=== PATIENT | male | born 1980 | race Caucasian/White ===

== ENCOUNTER 2021-01-20 10:34 | Emergency (ER) | payer OTHER ==
[2021-01-20 10:42] VITALS: BP 156/98; PULSE 73; RESP 16; TEMP 97.6
--- NOTE | 2021-01-20 10:58 | ED ---
ENT HPI - General Chief complaint: ENT Stated complaint: ear plug stuck in rt eat Time Seen by Provider: 01/20/21 10:51 Source: patient, RN notes reviewed Mode of arrival: ambulatory Limitations: no limitations - History of Present Illness Initial comments: 40-year-old male comes the emergency department complaining of ear blood stuck in right ear. He notes that it caused him to miss shoulders ordered due to him being dizzy. She also reported some muffled hearing. He denied any pain or other complaints. He was in no apparent distress or pain while sitting up in bed during the exam interview. He denied any chest pain short of breath headache nausea vomiting diarrhea constipation fever fatigue chills tinnitus. - Related Data Allergies Allergy/AdvReac Type Severity Reaction Status Date / Time No Known Allergies Allergy Verified 01/20/21 10:39 Review of Systems ROS Statement: Those systems with pertinent positive or pertinent negative responses have been documented in the HPI. ROS Other: All systems not noted in ROS Statement are negative. Past Medical History Past Medical History: No Reported History History of Any Multi-Drug Resistant Organisms: None Reported Past Surgical History: Appendectomy Smoking Status: Never smoker Past Alcohol Use History: None Reported Past Drug Use History: None Reported General Exam Limitations: no limitations General appearance: alert, in no apparent distress Head exam: Present: atraumatic, normocephalic, normal inspection Eye exam: Present: normal appearance, PERRL, EOMI. Absent: scleral icterus, c onjunctival injection, periorbital swelling ENT exam: Present: normal exam, mucous membranes moist, normal external ear exam (Impacted cerumen bilaterally) Neck exam: Present: normal inspection. Absent: tenderness, meningismus, lymphadenopathy Respiratory exam: Present: normal lung sounds bilaterally. Absent: respiratory distress, wheezes, rales, rhonchi, stridor Cardiovascular Exam: Present: regular rate, normal rhythm, normal heart sounds. Absent: systolic murmur, diastolic murmur, rubs, gallop, clicks GI/Abdominal exam: Present: soft, normal bowel sounds. Absent: distended, tenderness, guarding, rebound, rigid Extremities exam: Present: normal inspection, full ROM, normal capillary refill. Absent: tenderness, pedal edema, joint swelling, calf tenderness Neurological exam: Present: alert, oriented X3, CN II-XII intact Psychiatric exam: Present: normal affect, normal mood Skin exam: Present: warm, dry, intact, normal color. Absent: rash Course Vital Signs 01/20/21 10:39 Temperature 97.6 F Pulse Rate 73 Respiratory 16 Rate Blood Pressure 156/98 O2 Sat by Pulse 98 Oximetry Procedures - Ear Wax Removal Both Ears Ear Canal Irrigated by: RN Ear Canal Irrigated With: warm saline using syringe/angiocath Results: Re-examined: cerumen removed completely TM Visible: TM(s) intact, normal appearance Ear Canal: atraumatic Patient Tolerated Procedure: well Complications: no problems Medical Decision Making - Medical Decision Making 40-year-old male with impacted cerumen in bilateral ears. No labs necessary. Will flush the ears Case discussed with Dr. Wilson, patient discharge home with follow-up to primary care as needed. Disposition Clinical Impression: Impacted cerumen of both ears Disposition: HOME SELF-CARE Condition: Stable Instructions (If sedation given, give patient instructions): Cerumen Impaction (ED) Additional Instructions: Please return to the Emergency Department if symptoms worsen or any other concerns. Can use [id number] ear cleaning kits such as Debrox help prevent buildup and impaction Follow-up with primary care as needed. avoid using Q-tips inside the ear. Is patient prescribed a controlled substance at d/c from ED?: No Referrals: None,Stated [Primary Care Provider] - 1-2 days Time of Disposition: 11:54
== END 2021-01-20 12:06 | disposition home or self-care (01) ==
LOC: EC 10:34
DX: H61.23 Impacted cerumen, bilateral (principal)
CPT/HCPCS: 69210; 99282

== ENCOUNTER 2021-02-14 03:24 | Emergency (ER) | payer OTHER ==
[2021-02-14 03:30] VITALS: RESP 18; TEMP 98.3
[2021-02-14] MEDS ORDERED: IBUPROFEN 400 MG TAB PO STA (03:59)
--- NOTE | 2021-02-14 04:03 | ED ---
Fall HPI - General Chief Complaint: Fall Stated Complaint: Fall - [facility] Time Seen by Provider: 02/14/21 03:50 Source: patient Mode of arrival: ambulatory - History of Present Illness Initial Comments: Patient is a 40-year-old man presenting to be evaluated after a slip and fall injury. He states that he was at work tonight and he attempted to walk around the work area to get some parts when he slipped on some oil and fell striking his buttocks and tailbone area. Complains of pain to the sacrum and coccyx area. Denies other injury. MD Complaint: fall -: hour(s) Fall From: standing When Fall Occurred: 1-3 [address] [address] Fall Occurred: work Loss of Consciousness: none Prolonged Down Time?: no Symptoms Prior to Fall: none Location: back, buttocks Severity: moderate Quality: aching Context: tripped/slipped Associated Symptoms: denies - Related Data Previous Rx's Medication Instructions Recorded Ibuprofen 800 mg PO TID #20 tablet 02/14/21 Allergies Allergy/AdvReac Type Severity Reaction Status Date / Time No Known Allergies Allergy Verified 02/14/21 03:29 Review of Systems ROS Statement: Those systems with pertinent positive or pertinent negative responses have been documented in the HPI. ROS Other: All systems not noted in ROS Statement are negative. Constitutional: Denies: fever Eyes: Denies: vision change Respiratory: Denies: cough, dyspnea Cardiovascular: Denies: chest pain, syncope Gastrointestinal: Denies: abdominal pain, nausea, vomiting Genitourinary: Denies: dysuria, testicular pain Musculoskeletal: Reports: as per HPI, back pain Skin: Denies: rash Neurological: Denies: headache, weakness, numbness, paresthesias Past Medical History Past Medical History: No Reported History History of Any Multi-Drug Resistant Organisms: None Reported Past Surgical History: Appendectomy Past Psychological History: No Psychological Hx Reported Smoking Status: Never smoker Past Alcohol Use History: None Reported Past Drug Use History: None Reported General Exam Limitations: no limitations General appearance: alert, in no apparent distress Head exam: Present: atraumatic, normocephalic Neck exam: Present: normal inspection, full ROM. Absent: tenderness Respiratory exam: Present: normal lung sounds bilaterally. Absent: respiratory distress, wheezes, rales, rhonchi, stridor GI/Abdominal exam: Present: soft. Absent: distended, tenderness, guarding, rebound, mass Extremities exam: Present: normal inspection, normal capillary refill. Absent: pedal edema, calf tenderness Back exam: Present: vertebral tenderness. Absent: CVA tenderness (R), CVA tenderness (L) Neurological exam: Present: alert Skin exam: Present: warm, dry, intact, normal color. Absent: rash Course Vital Signs 02/14/21 02/14/21 03:25 04:20 Temperature 98.3 F Pulse Rate 90 80 Respiratory 18 18 Rate Blood Pressure 127/88 118/65 O2 Sat by Pulse 97 98 Oximetry Disposition Clinical Impression: Fall, Contusion Disposition: HOME SELF-CARE Condition: Good Instructions (If sedation given, give patient instructions): Hematoma (ED) Prescriptions: Ibuprofen 800 mg PO TID #20 tablet Is patient prescribed a controlled substance at d/c from ED?: No Referrals: None,Stated [Primary Care Provider] - 1-2 days
[2021-02-14 04:21] VITALS: BP 118/65; PULSE 80
--- NOTE | 2021-02-14 05:03 | XR ---
EXAM: XR Sacrum and Coccyx, 2 or more Views CLINICAL HISTORY: ITS.REASON XR Reason: fall injury TECHNIQUE: Frontal and lateral views of the sacrum and coccyx. COMPARISON: No relevant prior studies available. FINDINGS: Sacrum/coccyx: Unremarkable as visualized. No acute fracture. Vertebrae: Visualized lumbar vertebrae are unremarkable. Soft tissues: Unremarkable. IMPRESSION: Normal sacrum and coccyx x-rays.
--- NOTE | 2021-02-14 05:05 | XR ---
EXAM: XR Lumbosacral Spine, 2 or 3 Views CLINICAL HISTORY: ITS.REASON XR Reason: fall injury TECHNIQUE: Frontal and lateral views of the lumbar spine and sacrum. COMPARISON: No relevant prior studies available. FINDINGS: Vertebrae: Unremarkable. No acute fracture. Normal alignment. Degenerative osteophytes throughout the lower thoracic and upper lumbar spine. Sacrum/coccyx: Unremarkable as visualized. No acute fracture. Disc spaces: No acute findings. Mild disc space narrowing of the upper lumbar spine. Soft tissues: Unremarkable. IMPRESSION: 1. No acute fractures or traumatic malalignment to the lumbar spine. 2. Degenerative osteophytes throughout the lower thoracic and upper lumbar spine. Mild disc space narrowing of the upper lumbar spine.
== END 2021-02-14 05:25 | disposition home or self-care (01) ==
LOC: EC 03:24
DX: S80.10XA Contusion of unspecified lower leg, initial encounter (principal); W01.0XXA Fall on same level from slipping, tripping and stumbling without subsequent striking against object, initial encounter; Y93.01 Activity, walking, marching and hiking; Y99.0 Civilian activity done for income or pay
CPT/HCPCS: 72100; 72220; 99284

== ENCOUNTER → 2021-02-22 | Outpatient (CLI) | payer OTHER ==
--- NOTE | 2021-02-22 15:14 | XR ---
EXAMINATION TYPE: XR knee complete LT DATE OF EXAM: 02/22/2021 COMPARISON: NONE HISTORY: Pain TECHNIQUE: Three views are submitted. FINDINGS: Joint spaces are preserved. Osseous structures are intact. No acute fracture seen. Mild hypertroph ic spurring along the medial compartment of the knee. Small amount of fluid in the suprapatellar burs a. IMPRESSION: 1. No acute fracture or dislocation. 2. Small amount of fluid in the suprapatellar bursa. Correlate with MRI as clinically warranted.
== END | disposition home or self-care (01) ==
LOC: RADXRMAIN 14:39
PROVIDERS: ATTEND Emergency Medicine
DX: M25.562 Pain in left knee (principal)

== ENCOUNTER 2021-02-26 10:40 | Emergency (ER) | payer OTHER ==
[2021-02-26 11:22] VITALS: BP 123/81; PULSE 70; RESP 18; TEMP 97.6
[2021-02-26] MEDS ORDERED: KETOROLAC 15 MG/ML 1 ML VIAL IM STA (11:47)
--- NOTE | 2021-02-26 12:39 | XR ---
EXAMINATION TYPE: XR knee complete LT DATE OF EXAM: 02/26/2021 CLINICAL HISTORY: Persistent Pain since recent injury. TECHNIQUE: Three views of the left knee are obtained. COMPARISON: Left knee x-rays 4 days ago. FINDINGS: There is no acute fracture/dislocation evident in left knee. Mild tricompartment narrowing redemonstrated. No significant spurring. Improved suprapatellar density consistent with resolving kathrin int effusion. IMPRESSION: As above.
--- NOTE | 2021-02-26 12:59 | ED ---
General Adult HPI - General Chief complaint: Extremity Injury, Lower Stated complaint: knee pain Time Seen by Provider: 02/26/21 11:25 Source: patient Mode of arrival: ambulatory Limitations: physical limitation - History of Present Illness Initial comments: 40-year-old male resents to the emergency department for chief complaint of left knee pain. Patient reports that about 2 weeks ago he slipped and fell at work and injured his left knee. States his leg "folded" under him when he fell. Patient states he was seen and had an x-ray performed. He then followed up with Dr. Levin at [facility]. Patient reports that his knee pain has continued and he has not sure what is going on with it. He denies any fevers or chills. States he can walk on the knee.Patient has no other complaints at this time including shortness of breath, chest pain, abdominal pain, nausea or vomiting, headache, or visual changes. - Related Data Home Medications Medication Instructions Recorded Confirmed Multivitamins, Thera [Multivitamin 1 tab PO Q48H 02/26/21 02/26/21 (formulary)] Previous Rx's Medication Instructions Recorded Ibuprofen 800 mg PO TID #20 tablet 02/14/21 Allergies Allergy/AdvReac Type Severity Reaction Status Date / Time No Known Allergies Allergy Verified 02/26/21 11:49 Review of Systems ROS Statement: Those systems with pertinent positive or pertinent negative responses have been documented in the HPI. ROS Other: All systems not noted in ROS Statement are negative. Past Medical History Past Medical History: No Reported History History of Any Multi-Drug Resistant Organisms: None Reported Past Surgical History: Appendectomy Past Psychological History: No Psychological Hx Reported Smoking Status: Never smoker Past Alcohol Use History: None Reported Past Drug Use History: None Reported General Exam Limitations: physical limitation General appearance: alert, in no apparent distress Head exam: Present: atraumatic, normocephalic, normal inspection Eye exam: Present: normal appearance, PERRL, EOMI. Absent: scleral icterus, conjunctival injection, periorbital swelling ENT exam: Present: normal exam, mucous membranes moist Neck exam: Present: normal inspection. Absent: tenderness, meningismus, lymphadenopathy Respiratory exam: Present: normal lung sounds bilaterally. Absent: respiratory distress, wheezes, rales, rhonchi, stridor Cardiovascular Exam: Present: regular rate, normal rhythm, normal heart sounds. Absent: systolic murmur, diastolic murmur, rubs, gallop, clicks Extremities exam: Present: full ROM (Full range of motion of the left knee. Patient does have pain with flexion of the left knee past 90), normal capillary refill (Capillary refill less than 2 seconds, DP pulse 2+ left lower extremity), other (Sensation intact left lower extremity). Absent: tenderness, joint swelling (No edema, erythema, ecchymosis of the left leg.) Course Vital Signs 02/26/21 11:19 Temperature 97.6 F Pulse Rate 70 Respiratory 18 Rate Blood Pressure 123/81 O2 Sat by Pulse 96 Oximetry Medical Decision Making - Medical Decision Making Vitals are stable. Patient has had knee pain for the fall 2 weeks ago. Patient is able to fully flex left knee however does have pain with flexion past 90. He is able to intubate on the knee. No edema erythema noted of the left knee. Patient did have a neck supple performed today in the ER. This showed no acute fracture or dislocation. There is improved suprapatellar density consistent with resolving joint effusion. At this point patient has not seen orthopedics. We will refer him for possible MRI. He will take Motrin without for pain. He will return for any worsening symptoms otherwise. Disposition Clinical Impression: Knee pain, left Disposition: HOME SELF-CARE Condition: Good Instructions (If sedation given, give patient instructions): Knee Pain (ED) Additional Instructions: Please take Motrin and Tylenol for pain. Rest ice and elevate the left knee. Follow-up with orthopedics. Return to the emergency room for any worsening symptoms. Is patient prescribed a controlled substance at d/c from ED?: No Referrals: Mejia Bridges MD [Primary Care Provider] - 1-2 days Damian Randle DO [Doctor of Osteopathic Medicine] - 1-2 days Time of Disposition: 12:58
== END 2021-02-26 13:00 | disposition home or self-care (01) ==
LOC: EC 10:40
DX: M25.562 Pain in left knee (principal); W01.0XXA Fall on same level from slipping, tripping and stumbling without subsequent striking against object, initial encounter; Y99.0 Civilian activity done for income or pay
CPT/HCPCS: 99283; 96372; 73562; J1885

== ENCOUNTER → 2021-02-28 | Outpatient (CLI) | payer OTHER ==
--- NOTE | 2021-02-28 12:59 | XR ---
EXAMINATION TYPE: XR ankle complete LT DATE OF EXAM: 02/28/2021 COMPARISON: NONE HISTORY: Pain FINDINGS: Three views of the ankle demonstrate the ankle mortise to be intact and symmetric. The joint spaces are preserved. The osseous structures are intact. IMPRESSION: 1. No definite acute fracture or dislocation, if symptoms persist follow-up study in 7 to 10 days wou ld be suggested.
== END | disposition home or self-care (01) ==
LOC: RADXRMAIN 12:38
PROVIDERS: ATTEND Emergency Medicine
DX: M25.572 Pain in left ankle and joints of left foot (principal)

== ENCOUNTER 2021-05-24 11:22 | Day surgery (SDC) | payer OTHER ==
[2021-05-18 13:18] VITALS: BMI 35.1
--- NOTE | 2021-05-23 22:09 | HP ---
HISTORY AND PHYSICAL DATE OF SURGERY: 05/24/2021 Paul Guerrero is a 40-year-old gentleman seen with progressive left knee pain. We discussed options. He elected to proceed with arthroscopy. Consent was obtained. PAST MEDICAL HISTORY: Noncontributory. PAST SURGICAL HISTORY: Noncontributory. DAILY MEDICATIONS: None. ALLERGIES: NONE. SOCIAL HISTORY: He denies tobacco use. PHYSICAL EVALUATION OF THE LEFT KNEE: Range of motion is negative 2/3 to 120. Mild effusion. Tenderness, medial joint line. Positive medial Radha's. Ligaments stable. Hip rotation without pain. Distal neurovascular exam intact. RADIOGRAPHS: Left knee radiographs revealed no osseous abnormality. MRI left knee revealed medial meniscal tear. IMPRESSION: Internal derangement of left knee with medial meniscal tear. PLAN: Left knee arthroscopy with partial meniscectomy and debridement. MMODL / IJN: [id number] /
[~2021-05-24 11:22] MED LIST: DEXAMETHASONE SOD PHOSPHATE 4 MG/ML 1 ML VIAL IV ONE; HYDROmorphone 0.5 MG/0.5 ML SYRINGE IVP PRN; LACTATED RINGERS 1,000 ML IV SCH; LIDOCAINE 1% (10MG/ML) FOR IV START INTRADERMA PRN; MIDAZOLAM 2 MG/2 ML VIAL IV PRN; ONDANSETRON 4 MG/2 ML VIAL IVP ONE; ceFAZolin 3 GM in SODIUM CHLORIDE 0.9% 100 ML IVPB PRN; fentaNYL (PF) 50 MCG/ML 2 ML AMP IV PRN
[2021-05-24 12:43] VITALS: RESP 16
[2021-05-24] MEDS ORDERED: MIDAZOLAM 2 MG/2 ML VIAL IVP ONE (13:00)
[2021-05-24 13:48] LABS: Basophils # (A) 0.1 k/uL (0-0.2); Basophils % (A) 1 %; Eosinophils # (A) 0.2 k/uL (0-0.7); Eosinophils % (A) 2 %; HCT 44.8 % (39.0-53.0); HGB 15.8 gm/dL (13.0-17.5); Lymphocytes # (A) 2.6 k/uL (1.0-4.8); Lymphocytes % (A) 26 %; MCH 31.4 pg (25.0-35.0); MCHC 35.3 g/dL (31.0-37.0); MCV 88.9 fL (80.0-100.0); Mean Platelet Volume 8.6; Monocytes # (A) 0.9 k/uL (0-1.0); Monocytes % (A) 9 %; Neutrophils # (A) 5.9 k/uL (1.3-7.7); Neutrophils % (A) 59 %; Platelet Count 280 k/uL (150-450); RBC 5.04 m/uL (4.30-5.90); RDW 13.9 % (11.5-15.5)
[2021-05-24] MEDS ORDERED: LIDOCAINE 1% INJ 10MG/ML (20 ML MDV) ONE (14:23)
[2021-05-24] MEDS ORDERED: fentaNYL (PF) 50 MCG/ML 2 ML AMP ONE (14:23)
[2021-05-24] MEDS ORDERED: DEXAMETHASONE SOD PHOSPHATE 10 MG/ML 1 ML VIAL ONE (14:23)
[2021-05-24] MEDS ORDERED: PROPOFOL 10 MG/ML 20 ML VIAL IV ONE (14:23)
[2021-05-24] MEDS ORDERED: SUCCINYLCHOLINE CHLORIDE VIAL 200 MG/10 ML VIAL IV ONE (14:23)
[2021-05-24] MEDS ORDERED: BUPIVACAINE (PF) 0.25% 30 ML VIAL INTRAARTIC ONE ×2 (14:32→15:05)
[2021-05-24 15:25] VITALS: TEMP 97.2
--- NOTE | 2021-05-24 15:26 | P.OP ---
Date of Procedure: 05/24/21 Preoperative Diagnosis: Internal derangement left knee Postoperative Diagnosis: 1. Tear medial meniscus left knee 2. Reactive synovitis medial, lateral and suprapatellar compartments left knee Procedure(s) Performed: 1. Arthroscopic partial medial meniscectomy left knee 2. Arthroscopic partial synovectomy medial, lateral and suprapatellar compartments left knee Anesthesia: INEZA, local Surgeon: Damian Randle Estimated Blood Loss (ml): 5 Pathology: none sent Condition: stable Disposition: PACU Indications for Procedure: 40-year-old patient seen with progressive left knee pain. I discussed treatment options. He elected to proceed with arthroscopy. Operative Findings: See description of procedure Description of Procedure: Patient was taken to the operative suite. Patient underwent a general anesthetic by the department of anesthesia. Patient was given preoperative antibiotics. The left lower extremity was placed in a well-padded arthroscopic leg estrada. The left leg was prepped and draped in the normal sterile orthopedic fashion. A lateral parapatellar and suprapatellar incision was made. Trochars were inserted. Arthroscopy was initiated. Suprapatellar pouch revealed diffuse thick reactive synovitis. The patellofemoral joint appeared to articulate congruently. There was mild grade 1 chondromalacia with no tears. The scope was guided into the medial gutter. No loose bodies or plica were i dentified. The scope was then guided into the medial compartment. A medial parapatellar incision was made. Trocar inserted followed by probe. There was a tear involving the posterior horn medial meniscus. There were grade 1 chondral moist changes of the femoral condyle and tibial plateau. There was thick reactive synovitis anteriorly. I performed a partial medial meniscectomy getting down to stable meniscal tissue. I performed a partial synovectomy decompressing the reactive synovitis. The residual meniscus was found to be stable. There was good decompression of the synovitis. Scope and probe were then guided into the intercondylar notch. Cruciates were identified, probed and found to be stable. The scope and probe were then guided into lateral compartment. Lateral meniscus was probed and found to be stable. Lateral femoral condyle and tibial plateau appears stable. There was thick reactive synovitis anteriorly. I introduced a motorized shaver and performed a partial synovectomy. Shaver was removed. There was good decompression of synovitis. The scope was in guided back into the suprapatellar compartment. I introduced a motorized shaver into the suprapatellar compartment. I debrided some piecemeal fragments of meniscus I encountered. I performed a partial synovectomy. Shaver was removed. There was good decompression of synovitis. I took one more look around the entire knee, no residual debris. Instruments were now removed from the joint. The joint was infiltrated with .25% Marcaine. Steri-Strips were applied to the portal sites. Sterile dressings were applied. The patient was placed into a YEISON hose. No tourniquet was utilized. The patient was awakened, transferred to a bed and taken to recovery stable satisfactory condition.
[2021-05-24] MEDS ORDERED: HYDROcodone/APAP 5-325MG 1 EACH TAB ONE (16:48)
[2021-05-24] MEDS ORDERED: HYDROcodone/APAP 5-325MG 1 EACH TAB PO ONE (16:49)
[2021-05-24 17:04] VITALS: BP 122/86; PULSE 76
== END 2021-05-24 17:45 | disposition home or self-care (01) ==
LOC: OR 11:22
PROVIDERS: ATTEND Orthopaedic Surgery
DX: M23.204 Derangement of unspecified medial meniscus due to old tear or injury, left knee (principal); M65.862 Other synovitis and tenosynovitis, left lower leg; K21.9 Gastro-esophageal reflux disease without esophagitis; E66.01 Morbid (severe) obesity due to excess calories; Z90.49 Acquired absence of other specified parts of digestive tract
CPT/HCPCS: 29881; 29876; 85025; J2250; J0330; J1100 ×2; J0690; J2405; J2001; J3010; J2704

== ENCOUNTER 2022-02-01 01:29 | Emergency (ER) | payer BC ==
--- NOTE | 2022-02-01 07:04 | XR ---
EXAM: XR Chest, 1 View CLINICAL HISTORY: chest pain TECHNIQUE: Frontal view of the chest. COMPARISON: No relevant prior studies available. FINDINGS: Lungs: No consolidation or mass. Pleural space: No acute findings Heart: cardiomegaly. Bones/joints: No acute findings. IMPRESSION: No acute cardiopulmonary process.
[2022-02-01 07:59] LABS: ALT 18 U/L (4-49); AST 22 U/L (17-59); African American GFR (CKD) >90 (>60 ml/min/1.73 sqM); Albumin 4.4 g/dL (3.5-5.0); Alkaline Phosphatase 43 U/L (38-126); Anion Gap 6 mmol/L; Blood Urea Nitrogen 18 mg/dL (9-20); Calcium 9.1 mg/dL (8.4-10.2); Carbon Dioxide 25 mmol/L (22-30); Chloride 107 mmol/L (98-107); Glucose 95 mg/dL (74-99); Lipase 824 U/L (23-300); Non-African American GFR(CKD) 78 (>60 ml/min/1.73 sqM); Potassium 4.3 mmol/L (3.5-5.1); Sodium 138 mmol/L (137-145); Total Bilirubin 0.4 mg/dL (0.2-1.3); Total Protein 6.6 g/dL (6.3-8.2)
[2022-02-01 08:17] LABS: Basophils # (A) 0.1 k/uL (0-0.2); Basophils % (A) 1 %; Eosinophils # (A) 0.2 k/uL (0-0.7); Eosinophils % (A) 2 %; HCT 46.5 % (39.0-53.0); HGB 15.2 gm/dL (13.0-17.5); Lymphocytes # (A) 2.6 k/uL (1.0-4.8); Lymphocytes % (A) 29 %; MCH 29.5 pg (25.0-35.0); MCHC 32.7 g/dL (31.0-37.0); MCV 90.4 fL (80.0-100.0); Monocytes # (A) 0.6 k/uL (0-1.0); Monocytes % (A) 6 %; Neutrophils # (A) 5.5 k/uL (1.3-7.7); Neutrophils % (A) 60 %; Platelet Count 243 k/uL (150-450); RBC 5.14 m/uL (4.30-5.90); RDW 13.3 % (11.5-15.5); WBC 9.2 k/uL (3.8-10.6)
[2022-02-01 08:20] LABS: Creatine Kinase 176 U/L (55-170); Creatine Kinase MB 2.5 ng/mL (0.0-2.4); Troponin I <0.012 ng/mL (0.000-0.034)
== END 2022-02-01 03:01 ==
LOC: EC 01:29
DX: R07.89 Other chest pain (principal)
CPT/HCPCS: 36415; 71045; 80053; 82550; 82553; 83690; 83880; 84484; 85025; 99285

== ENCOUNTER 2022-09-02 10:33 | Emergency (ER) | payer SELFPAY ==
[2022-09-02 10:45] VITALS: TEMP 98.5
[2022-09-02] MEDS ORDERED: ONDANSETRON 4 MG/2 ML VIAL IM STA (11:06)
--- NOTE | 2022-09-02 11:09 | ED ---
General Adult HPI - General Chief complaint: Nausea/Vomiting/Diarrhea Stated complaint: Covid exposure/symptoms Time Seen by Provider: 09/02/22 10:54 Source: patient Mode of arrival: ambulatory Limitations: no limitations - History of Present Illness Initial comments: Patient is a 41-year-old male presenting to the emergency room with complaints of nausea and vomiting along with generalized malaise and hot and cold flashes ongoing for 2 days. He is taking any medication to help with nausea or fevers but reports that his cough gave him a "green capsule antibiotic" to take and she advised him that helps with everything". His last episode of vomiting was earlier this morning. He reports that he is keeping liquids down but is having difficulty maintaining sinus intake. He states that he had exposure to COVID last week. He is not coated vaccinated. He denies any chest pain, shortness of breath, cough, abdominal pain, altered mental status, headaches or dizziness. He reports that he is not COVID vaccinated. He denies any known exposure to any other viral illnesses. He reports overall he is healthy and does not take any medications on a regular basis. - Related Data Previous Rx's Medication Instructions Recorded HYDROcodone/APAP 5-325MG [[place] 1 tab PO Q6HR PRN 3 Days #12 tab 05/24/21 5-325] Nirmatrelvir/Ritonavir [Paxlovid 1 each PO BID 5 Days #10 each 09/02/22 300-100 mg Pack ([facility])] Ondansetron Odt [Zofran Odt] 4 mg PO Q8HR PRN 7 Days #21 tab 09/02/22 Allergies Allergy/AdvReac Type Severity Reaction Status Date / Time No Known Allergies Allergy Verified 09/02/22 10:45 Review of Systems ROS Statement: Those systems with pertinent positive or pertinent negative responses have been documented in the HPI. ROS Other: All systems not noted in ROS Statement are negative. Past Medical History Past Medical History: No Reported History History of Any Multi-Drug Resistant Organisms: None Reported Past Surgical History: Appendectomy Past Anesthesia/Blood Transfusion Reactions: No Reported Reaction Past Psychological History: Anxiety, Depression Smoking Status: Vaper Past Alcohol Use History: None Reported Past Drug Use History: None Reported - Past Family History Mother Family Medical History: No Reported History General Exam General appearance: alert, in no apparent distress Head exam: Present: atraumatic, normocephalic, normal inspection Eye exam: Present: normal appearance, PERRL, EOMI. Absent: scleral icterus, conjunctival injection, periorbital swelling ENT exam: Present: normal exam, mucous membranes moist Neck exam: Present: normal inspection. Absent: tenderness, meningismus, lymphadenopathy Respiratory exam: Present: normal lung sounds bilaterally. Absent: respiratory distress, wheezes, rales, rhonchi, stridor Cardiovascular Exam: Present: regular rate, normal rhythm, normal heart sounds. Absent: systolic murmur, diastolic murmur, rubs, gallop, clicks GI/Abdominal exam: Present: soft, normal bowel sounds. Absent: distended, tenderness, guarding, rebound, rigid Rectal exam: Present: deferred Extremities exam: Present: normal inspection. Absent: pedal edema, joint swelling Back exam: Present: normal inspection, full ROM Neurological exam: Present: alert, oriented X3, CN II-XII intact Psychiatric exam: Present: normal affect, normal mood Skin exam: Present: warm, dry, intact, normal color. Absent: rash Course Vital Signs 09/02/22 10:42 Temperature 98.5 F Pulse Rate 95 Respiratory 16 Rate Blood Pressure 116/81 O2 Sat by Pulse 97 Oximetry Medical Decision Making - Medical Decision Making 41-year-old male presenting to the emergency room with nausea vomiting along with hot and cold flashes ongoing for approximately 2-1/2 days with known exposure to COVID last episode of vomiting earlier this morning. Still with nausea vomiting despite Zofran for nausea. Covid swab obtained. No indication for further diagnostic imaging or laboratory studies at this time. Will monitor Nausea improved with Zofran. Covid swab positive. Discussed need for quarantine for 5 days post positive test. Discussed risks benefits of Paxolvid. Patient would like to proceed with a prescription for Paxlovid Covid. Will prescribe. Will discharge home in stable condition with education regarding symptomatic management regarding Covid. Case discussed with Dr. Wilson - Lab Data Lab Results 09/02/22 Range/Units 10:48 Coronavirus (PCR) Detected A (Not Detectd) Disposition Clinical Impression: COVID-19 Disposition: HOME SELF-CARE Condition: Stable Instructions (If sedation given, give patient instructions): COVID-19 (Coronavirus Disease 2019) (ED) Additional Instructions: Please quarantine for 5 days after testing positive and restart quarantine if symptoms worsen. Complete course of Paxlovid as prescribed. Utilize Zofran prescription as needed for nausea. Do not take medications that are not prescribed to you. Please utilize Tylenol as needed for fevers and pain. Taking vitamin C, Zinc, vitamin D 50 mcg, and melatonin may help symptom recovery. Please return to the Emergency Department if symptoms worsen or any other concerns. Prescriptions: Nirmatrelvir/Ritonavir [Paxlovid 300-100 mg Pack ([facility])] 1 each PO BID 5 Days #10 each Ondansetron Odt [Zofran Odt] 4 mg PO Q8HR PRN 7 Days #21 tab PRN Reason: Is patient prescribed a controlled substance at d/c from ED?: No Referrals: Mejia Bridges MD [Primary Care Provider] - 1-2 days Time of Disposition: 11:58
[2022-09-02 12:24] VITALS: BP 126/84; PULSE 94; RESP 18
== END 2022-09-02 12:16 | disposition home or self-care (01) ==
LOC: EC 10:33
DX: U07.1 COVID-19 (principal); F41.9 Anxiety disorder, unspecified; F32.A Depression, unspecified; F17.290 Nicotine dependence, other tobacco product, uncomplicated
CPT/HCPCS: 87635; 99284; 96372; J2405

== ENCOUNTER 2022-09-21 09:29 | Emergency (ER) | payer OTHER ==
[2022-09-21 09:33] VITALS: PULSE 77; RESP 20; TEMP 98.5
--- NOTE | 2022-09-21 09:38 | ED ---
General Adult HPI - General Chief complaint: Recheck/Abnormal Lab/Rx Stated complaint: Work clearance Time Seen by Provider: 09/21/22 09:35 Source: patient Mode of arrival: ambulatory Limitations: no limitations - History of Present Illness Initial comments: Ordered a 1-year-old male presents to the emergency department requesting Covid test. Patient was seen in the emergency department on the and tested positive for Covid. He is requesting a repeat Covid test that he can return to work. He denies that he has any further symptoms. No other alleviating, precipitating or modifying factors - Related Data Previous Rx's Medication Instructions Recorded HYDROcodone/APAP 5-325MG [[place] 1 tab PO Q6HR PRN 3 Days #12 tab 05/24/21 5-325] Nirmatrelvir/Ritonavir [Paxlovid 1 each PO BID 5 Days #10 each 09/02/22 300-100 mg Pack ([facility])] Ondansetron Odt [Zofran Odt] 4 mg PO Q8HR PRN 7 Days #21 tab 09/02/22 Allergies Allergy/AdvReac Type Severity Reaction Status Date / Time No Known Allergies Allergy Verified 09/21/22 09:33 Review of Systems ROS Statement: Those systems with pertinent positive or pertinent negative responses have been documented in the HPI. ROS Other: All systems not noted in ROS Statement are negative. Past Medical History Past Medical History: No Reported History History of Any Multi-Drug Resistant Organisms: None Reported Past Surgical History: Appendectomy Past Anesthesia/Blood Transfusion Reactions: No Reported Reaction Past Psychological History: Anxiety, Depression Smoking Status: Vaper Past Alcohol Use History: None Reported Past Drug Use History: None Reported - Past Family History Mother Family Medical History: No Reported History General Exam Limitations: no limitations General appearance: alert, in no apparent distress Head exam: Present: atraumatic, normocephalic, normal inspection Eye exam: Present: normal appearance, PERRL, EOMI. Absent: scleral icterus, conjunctival injection, periorbital swelling ENT exam: Present: normal exam, mucous membranes moist Neck exam: Present: normal inspection. Absent: tenderness, meningismus, lymphadenopathy Respiratory exam: Present: normal lung sounds bilaterally. Absent: respiratory distress, wheezes, rales, rhonchi, stridor Cardiovascular Exam: Present: regular rate, normal rhythm, normal heart sounds. Absent: systolic murmur, diastolic murmur, rubs, gallop, clicks GI/Abdominal exam: Present: soft, normal bowel sounds. Absent: distended, tenderness, guarding, rebound, rigid Extremities exam: Present: normal inspection, full ROM, normal capillary refill. Absent: tenderness, pedal edema, joint swelling, calf tenderness Back exam: Present: normal inspection Neurological exam: Present: alert, oriented X3, CN II-XII intact Psychiatric exam: Present: normal affect, normal mood Skin exam: Present: warm, dry, intact, normal color. Absent: rash Course Vital Signs 09/21/22 09/21/22 09:31 10:38 Temperature 98.5 F Pulse Rate 77 77 Respiratory 20 20 Rate Blood Pressure 121/82 124/76 O2 Sat by Pulse 99 98 Oximetry Medical Decision Making - Medical Decision Making Upon arrival patient was placed into room 29. Thorough history and physical exam was performed. Patient is swabbed for Covid which is negative. He is given a copy of his results. Patient will be discharged home at this time. May return to work. Return for any new or worsening symptoms. Patient discharged home in stable condition - Lab Data Lab Results 09/21/22 Range/Units 09:34 Coronavirus (PCR) Not Detected (Not Detectd) Disposition Clinical Impression: History of COVID-19 Disposition: HOME SELF-CARE Condition: Stable Instructions (If sedation given, give patient instructions): Normal Exam (ED) Additional Instructions: Your covid test was negative. Is patient prescribed a controlled substance at d/c from ED?: No Referrals: Mejia Bridges MD [Primary Care Provider] - 1-2 days Time of Disposition: 10:32
[2022-09-21 10:41] VITALS: BP 124/76
== END 2022-09-21 10:40 | disposition home or self-care (01) ==
LOC: EC 09:29
DX: Z02.1 Encounter for pre-employment examination (principal); Z86.16 Personal history of COVID-19; F41.9 Anxiety disorder, unspecified; F32.A Depression, unspecified; F17.290 Nicotine dependence, other tobacco product, uncomplicated; Z20.822 Contact with and (suspected) exposure to COVID-19
CPT/HCPCS: 87635; 99283

== ENCOUNTER → 2023-02-20 | Outpatient (CLI) | payer OTHER ==
--- NOTE | 2023-02-20 15:26 | US ---
EXAMINATION TYPE: US venous doppler duplex LE RT DATE OF EXAM: 02/20/2023 3:05 PM COMPARISON: CLINICAL INDICATION: Male, 42 years old with history of S86.111A MUSCLE STRAIN; No redness or swellin g. Patient states his calf aches. No prominent injury, but says he lifts heavy objects at work. SIDE PERFORMED: Right TECHNIQUE: The lower extremity deep venous system is examined utilizing real time linear array sonog manohar with graded compression, doppler sonography and color-flow sonography. VESSELS IMAGED: Common Femoral Vein Deep Femoral Vein Greater Saphenous Vein * Femoral Vein Popliteal Vein Small Saphenous Vein * Proximal Calf Veins (* superficial vessels) Right Leg: Negative for DVT IMPRESSION: Grayscale, color doppler, spectral doppler imaging performed of the deep veins of the lo wer extremities. There is normal flow, compressibility, vascular waveforms.
--- NOTE | 2023-02-20 15:45 | XR ---
EXAMINATION TYPE: XR tibia fibula RT DATE OF EXAM: 02/20/2023 COMPARISON: NONE HISTORY: Pain TECHNIQUE: Two views are submitted. FINDINGS: The osseous structures are intact. The joint spaces are preserved. Small spur at the Achilles inser tion of the calcaneus. IMPRESSION: 1. No acute osseous abnormality.
--- NOTE | 2023-02-20 15:46 | XR ---
EXAMINATION TYPE: XR femur RT DATE OF EXAM: 02/20/2023 CLINICAL HISTORY: Pain TECHNIQUE: Two views of the right femur are obtained. COMPARISON: None FINDINGS: There is no acute fracture or dislocation seen in the right femur. The right hip and knee joints appear within normal limits. The overlying soft tissue appears unremarkable. Diffuse osteope giovany. Calcifications in the pelvis likely vascular. IMPRESSION: There is no acute fracture or dislocation in the right femur.
== END | disposition home or self-care (01) ==
LOC: RADUSWWP 14:29
PROVIDERS: ATTEND Emergency Medicine
DX: S86.111A Strain of other muscle(s) and tendon(s) of posterior muscle group at lower leg level, right leg, initial encounter (principal); M79.661 Pain in right lower leg; M79.651 Pain in right thigh; X58.XXXA Exposure to other specified factors, initial encounter